=== PATIENT | female | born 1935 | race Caucasian/White ===

== ENCOUNTER 2022-12-29 15:25 | Emergency (ER) | payer OTHER ==
[~2022-12-29] VITALS: Ht 157.5 cm; Wt 68.0 kg
[2022-12-29] MEDS ORDERED: DILTIAZEM ER120 M2 (15:39)
[2022-12-29] MEDS ORDERED: COZAAR100 MG PO (15:39)
[2022-12-29 16:56] LABS: HEMATOCRIT 39.2 % (36.0-45.00); HEMOGLOBIN 13.2 g/dL (12.0-15.00); MEAN CELL VOLUME 92.1 fL (80.00-100.00); MEAN CORPUSCULAR HGB CONC 33.7 g/dl (32.0-36.0); PLATELET COUNT 326 K/uL (150-450); RED BLOOD COUNT 4.26 M/uL (4.00-6.00); RED CELL DISTRIBUTION WIDTH 12.7 % (11.5-14.5)
[2022-12-29 17:28] LABS: CREATININE SERUM 1.08 mg/dL (0.55-1.02); GFR 48.1; POTASSIUM 3.97 mEq/L (3.5-5.1)
== END 2022-12-29 20:46 | disposition home or self-care (01) ==
LOC: EDBD 15:25 → ER 15:25
PROVIDERS: General Practice
DX: I10 Essential (primary) hypertension (principal); Z91.013 Allergy to seafood; Z91.041 Radiographic dye allergy status; Z91.018 Allergy to other foods